=== PATIENT | male | born 1995 | race African-American/Black ===

== ENCOUNTER 2021-11-04 10:35 | Emergency (ER) | payer OTHER ==
[2021-11-04] MEDS ORDERED: Ibuprofen 800 MG Tab PO ONE (12:08)
[2021-11-04] MEDS ORDERED: Meclizine 12.5 MG Tab PO ONE (13:24)
== END 2021-11-04 13:48 | disposition home or self-care (01) ==
LOC: JD.ED 10:35
DX: S51.812A Laceration without foreign body of left forearm, initial encounter (principal); S29.012A Strain of muscle and tendon of back wall of thorax, initial encounter; S33.5XXA Sprain of ligaments of lumbar spine, initial encounter; E66.9 Obesity, unspecified; Z68.43 Body mass index [BMI] 50.0-59.9, adult; V89.2XXA Person injured in unspecified motor-vehicle accident, traffic, initial encounter; Y92.410 Unspecified street and highway as the place of occurrence of the external cause
CPT/HCPCS: 72128; 72131; 99284; A9270